=== PATIENT | female | born 1945 | race Caucasian/White ===

== ENCOUNTER 2018-07-01 08:41 | Emergency (ER) | payer OTHER ==
[~2018-07-01] VITALS: Ht 160 cm; Wt 84.4 kg
[2018-07-01 08:48] VITALS: BP 181/67
[2018-07-01] MEDS ORDERED: LIDOCAINE 1% INJ 50 ML MDV IJ ONE (08:51)
[2018-07-01] MEDS ORDERED: LIDOCAINE HCL/PF 1% 30 ML VIAL TP ONE (09:00)
[2018-07-01] MEDS ORDERED: BACI/NEOM/POLY B OINT PKT 1 UDPKT PACKET TP ONE (09:00)
[2018-07-01] MEDS ORDERED: BENZOIN COMPOUND TINCT 60 ML BOTTLE ONE (10:04)
== END 2018-07-01 10:34 | disposition home or self-care (01) ==
LOC: ER 08:42
DX: S01.81XA Laceration without foreign body of other part of head, initial encounter (principal); M25.561 Pain in right knee; I10 Essential (primary) hypertension; E78.00 Pure hypercholesterolemia, unspecified; W01.0XXA Fall on same level from slipping, tripping and stumbling without subsequent striking against object, initial encounter; Y93.89 Activity, other specified; Y92.219 Unspecified school as the place of occurrence of the external cause; Y99.8 Other external cause status
CPT/HCPCS: 12013; 70450; 73564; 99284; J3490 ×2